=== PATIENT | male | born 1970 | race Caucasian/White ===

== ENCOUNTER 2017-07-05 02:45 | Emergency (ER) | payer MEDICAID ==
[~2017-07-05 02:45] MED LIST: NOR10T PO
[2017-07-05 05:05] VITALS: BP 149/90
== END 2017-07-05 05:05 | disposition home or self-care (01) ==
LOC: ED 02:45 → EDBD 02:45 → ED 05:05
DX: F41.9 Anxiety disorder, unspecified (principal)